=== PATIENT | male | born 1980 | race African-American/Black ===

== ENCOUNTER 2018-05-12 08:22 | Outpatient (CLI) | payer BC ==
[2018-05-12] MEDS ORDERED: ISOVUE-370 76%-LOCM 1 ML ONE (12:00)
--- NOTE | 2018-05-12 17:40 | CT ---
ABDOMEN CT WITH CONTRAST PELVIC CT WITH CONTRAST: History: Left lower quadrant pain. Left lower quadrant abdominal mass. Comparison: None. FINDINGS: ABDOMEN CT: Lung bases are clear. Normal heart size. No significant pericardial fluid. The descending thoracic ao rta and the abdominal aorta have normal caliber. No periaortic fat stranding. Intra and extrahepatic portal vein is patent. Unremarkable gallbladder. Liver, pancreas and adrenal glands have appropriate enhancement. Spleen is diminutive. No gastric hepatic, retrocrural or periportal lymphadenopathy. No mesenteric mass, lymphadenopathy, free air or free fluid. Ventral abdominal wall hernia containing mesenteric fat is noted. Gastric mucosa, duodenum, and multiple normal caliber small bowel loops are identified. Ileocecal simón ction is normal. Normal caliber appendix. Contrast and fecal material in a nondistended, nondilated c olon. There is diverticulosis in the splenic flexure. No evidence of diverticulitis. Mucosal prominen ce of the sigmoid colon likely due to inadequate distention. Colonoscopy if warranted. CT PELVIS: No mass, no mass, no lymphadenopathy, free air or free fluid. No lytic or blastic lesion in the osseous structures. IMPRESSION: 1. No acute abnormality in the abdomen or pelvis. 2. No evidence of mass in the left lower quadrant. 3. Diminutive spleen. 4. Sigmoid colon mucosa findings likely due to inadequate distention. Colonoscopy if warranted. POS: [facility]
== END 2018-05-12 08:23 | disposition home or self-care (01) ==
LOC: BICCT 08:22
PROVIDERS: ATTEND Family Medicine
DX: R10.32 Left lower quadrant pain (principal); R19.04 Left lower quadrant abdominal swelling, mass and lump; D73.89 Other diseases of spleen
CPT/HCPCS: 74177